=== PATIENT | male | born 1955 | race Caucasian/White ===

== ENCOUNTER 2020-05-19 14:29 | Outpatient (CLI) | payer MEDICARE, BC, SELFPAY ==
--- NOTE | 2020-05-19 11:45 | DI.RAD_ITS ---
EXAM: XR KNEE RT 3V AP,LAT,JOSÉ MGIUEL CLINICAL HISTORY: right knee pain TECHNIQUE: COMPARISON: No exams were available for comparison FINDINGS: Three views were obtained. There is mild narrowing of the cartilaginous joint space of the medial ti biofemoral joint. There are moderate marginal osteophytes involving all 3 joints of the knee, most p rominent at the medial tibiofemoral joint. IMPRESSION: Moderate DJD, predominantly involving medial tibiofemoral joint. No other acute finding. RADIATION DOSE DELIVERED: Total DLP Total DLP
== END 2020-05-19 14:49 ==
PROVIDERS: PCP Neuromusculoskeletal Medicine & OMM; Referring Provider Neuromusculoskeletal Medicine & OMM; Visit Provider Orthopaedic Surgery
DX: M17.11 Unilateral primary osteoarthritis, right knee (principal)
CPT/HCPCS: 73562; 99203